=== PATIENT | female | born 2005 | race Two or more races ===

== ENCOUNTER 2023-01-22 21:30 | Emergency (ER) | payer SELFPAY ==
[2023-01-22] VITALS (9 sets, daily range): BP systolic 100–124; BP diastolic 64–82; PULSE 68–80; RESP 16–18; TEMP 36.7–36.8; O2SAT 99–100; BMI 21.6
--- NOTE | 2023-01-22 21:43 | ED.GENADULT ---
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 She states the pain is gone for past 4 days. The cramping sensation. She states it starts in the suprapubic region and goes to her bilateral hips. She does note she has been having vaginal bleeding and had a large clot a few days ago. She says the bleeding has slowed down. She states her period was supposed to start for another week. Has had some nausea but denies fevers, chills, chest pain, shortness of breath, diarrhea, constipation, headache, vision changes, lightheadedness, dizziness, vaginal discharge. She does admit to being sexually active. Denies any dysuria. States she has never had symptoms like this before. Related Data Previous Rx's Medication Instructions Recorded ondansetron 4 mg disintegrating 4 mg PO Q6H #20 tabs 01/22/23 tablet Allergies Allergy/AdvReac Type Severity Reaction Status Date / Time No Known Drug Allergies Allergy Verified 01/22/23 21:42 Review of Systems Status of ROS: Reports: 10 or more systems reviewed and unremarkable except as noted in History and below [facility] Medical History (Updated 01/22/23 @ 22:41 by Rachid Vale DO) No significant past medical history Surgical History (Updated 01/22/23 @ 21:55 by Vicente Gutierres RN) No significant past surgical history Social History Smoking Status: Never smoker Second hand tobacco smoke exposure: No How often do you have a drink containing alcohol: never How often do you have six or more drinks on one occasion: Never AUDIT-C Alcohol total score: 0 Non-prescribed substance use: denies use Exam Narrative: Exam Narrative: Const: Well-nourished, Well-developed, in mild distress Eyes: PERRL, no conjunctival injection, and symmetrical lids ENMT: Atraumatic external nose and ears. Moist mucous membranes. Neck: Symmetric, trachea midline, No thyromegaly. CVS: RRR, No murmurs or gallops. Peripheral pulses 2+ and equal in all extremities RESP: Unlabored respiratory effort. Clear to auscultation bilaterally. GI: Suprapubic tenderness, Nondistended, No rebound or guarding. MSK:Extremities w/o deformity, Normal Active ROM Skin: Warm, Dry. No rashes or lesions. Neuro: Normal Muscle tone, No focal neurological deficits. Psych: Awake, Alert, & Oriented x3. Appropriate mood and affect. Const: Vital Signs, click to edit/add: Vital Signs - 24 hr 01/22/23 21:39 01/22/23 21:53 01/22/23 21:57 Temperature 98.0 F 98.0 F 98.0 F Pulse Rate 68 Pulse Rate [Right Pulse Oximeter] 74 Respiratory Rate 18 16 Blood Pressure 114/76 Blood Pressure [Le ft Upper Arm] 124/82 Pulse Oximetry 99 100 Oxygen Delivery Me thod Room Air 01/22/23 22:02 01/22/23 22:31 Temperature 98.2 F 98.2 F Pulse Rate 69 73 Pulse Rate [Right Pulse Oximeter] Respiratory Rate 16 16 Blood Pressure 111/65 100/64 Blood Pressure [Le ft Upper Arm] Pulse Oximetry 100 100 Oxygen Delivery Me thod Course Vital Signs Vital signs: Initial Vital Signs Temperature 98.0 F 01/22/23 21:39 Temperature Source Temporal Artery Scan 01/22/23 21:39 Pulse Rate 74 01/22/23 21:39 Pulse Rhythm Regular 01/22/23 21:39 Respiratory Rate 18 01/22/23 21:39 Blood Pressure 124/82 01/22/23 21:39 Blood Pressure Mean 96 01/22/23 21:39 Blood Pressure Position Sitting 01/22/23 21:39 Pulse Oximetry 99 01/22/23 21:39 Oxygen Delivery Method Room Air 01/22/23 21:39 Vital Signs Temperature 98.0 F 01/22/23 21:39 Pulse Rate 74 01/22/23 21:39 Respiratory Rate 18 01/22/23 21:39 Blood Pressure 124/82 01/22/23 21:39 Pulse Oximetry 99 01/22/23 21:39 Oxygen Delivery Method Room Air 01/22/23 21:39 Temperature 98.2 F 01/22/23 22:31 Pulse Rate 73 01/22/23 22:31 Respiratory Rate 16 01/22/23 22:31 Blood Pressure 100/64 01/22/23 22:31 Pulse Oximetry 100 01/22/23 22:31 Oxygen Delivery Method Room Air 01/22/23 21:39 Medical Decision Making MDM Narrative Medical decision making narrative: Patient is an 16-year-old female presents was performed for lower abdominal cramping and pelvic pain. Pain is gone for 4 days. She has also been having some vaginal bleeding. She states that she would be early for her menstrual period. Has had some nausea but no vomiting. No vaginal discharge. Denies dysuria or increased frequency. No fevers or chills. Right now differential includes , ectopic , menstruation, UTI, viral gastritis. Unlikely to be ovarian torsion concerning location is more suprapubic versus inguinal and has been gone for 4 days and patient is not into once distress at this time. CMP shows no concerning abnormalities. test was negative. Urinalysis shows no concerning abnormalities. Patient's CBC shows no clear signs of anemia or infection. At this point is unclear what is causing her symptoms but this not appear to be anything emergent. Could be a viral gastroenteritis or just her menstrual period coming early. I informed the patient to return emergency department if the pelvic pain gets worse or if the pain starts localizing to the right lower quadrant. She states she understands. She will be discharged home. Lab Data Labs: Lab Results 01/22/23 Range/Units 21:48 WBC 8.34 (4.50-11.00) K/uL RBC 4.60 (4.00-5.20) m/uL Hgb 13.8 (12.0-16.0) gm/dL Hct 41.2 (33.0-51.0) % MCV 90 (80-100) fL MCH 30 (26-34) pg MCHC 34 (32-36) gm/dL RDW Coeff of Evonne 12.5 (11.5-15.5) % Plt Count 316 (140-440) K/uL Neut % (Auto) 44.7 (42.0-72.0) % Lymph % (Auto) 43.5 (20-44) % [place] % (Auto) 6.8 (0.0-11.0) % Eos % (Auto) 3.5 (0.0-7.0) % Baso % (Auto) 0.8 (0.0-3.0) % Neut # (Auto) 3.72 (1.7-7.0) K/uL Lymph # (Auto) 3.63 H (0.90-2.90) K/uL [place] # (Auto) 0.60 (0.00-0.90) K/UL Eos # (Auto) 0.29 (0.00-0.50) K/uL Baso # (Auto) 0.07 (0.00-0.30) K/uL Abs Immat Gran (auto) 0.06 (0.00-0.30) K/uL Imm/Tot Granulo (auto) 0.7 % Sodium 140 (135-149) mmol/L Potassium 3.3 L (3.6-5.1) mmol/L Chloride 102 (96-114) mmol/L Carbon Dioxide 26 (20-32) mmol/L BUN 15 (5-24) mg/dL Creatinine 0.5 L (0.6-1.2) mg/dL Estimated Creat Clear 162.85 Estimated GFR 138 ml/min Glucose 90 (60-115) mg/dL Calcium 9.9 (8.7-10.8) mg/dL Total Bilirubin 0.4 (0.1-1.5) mg/dL AST 29 (12-35) U/L ALT 17 (4-35) U/L Alkaline Phosphatase 119 (40-150) U/L Total Protein 8.9 H (6.0-8.3) g/dL Albumin 5.4 H (3.3-5.0) g/dL Urine Color Yellow (Yellow) Urine Appearance Clear (Clear) Urine pH 5.5 (5.0-8.5) Ur Specific [place] >= 1.030 (1.000-1.030) Urine Protein Negative (Negative) Urine Glucose (UA) Negative (Negative) Urine Ketones Negative (Negative) Urine Blood 2+ A (Negative) Urine Nitrite Negative (Negative) Urine Bilirubin Negative (Negative) Urine Urobilinogen 0.2 (0.2-1.0) Ur Leukocyte Esterase Negative (Negative) Urine RBC 0-2 (0-2) Urine WBC 0-2 (0-5) Ur Squamous Epith Cells Few (None-Few) Urine Bacteria None (None) Urine HCG, Qual Negative (Negative) Discharge Plan Discharge Clinical Impression: Pelvic pain Patient Disposition: Home, Self-Care Condition: Stable Instructions: Pelvic Pain (ED) Additional Instructions: Follow-up with the primary care provider. Take Tylenol or ibuprofen for pain. We also gave you Zofran for nausea. If the pelvic pain gets worse or pain starts radiating to the right lower portion of your abdomen please return to the emergency department or return for any other concerning symptoms Seguimiento con el proveedor de atenci?n primaria. Sidell Tylenol o ibuprofeno para el dolor. Tambi?n te dimos Zofran para las n?useas. Si el dolor p?lvico empeora o el dolor comienza a irradiarse a la parte inferior derecha de keller abdomen, regrese al departamento de emergencias o regrese para cualquier otro s?ntoma preocupante. Prescriptions: New ondansetron 4 mg tablet,disintegrating 4 mg PO Q6H Qty: 20 0RF Stand Alone Forms: [facility]
[2023-01-22] MEDS: ONDANSETRON 2 MG/ML inj 4 MG IVP (21:50)
[2023-01-22] MEDS: KETOROLAC 15 MG/ML inj IVP (21:57)
[2023-01-22 21:59] LABS: Appearance Urine Clear (Clear); Bilirubin Urine Negative (Negative); Blood Urine 2+ (Negative); Color Urine Yellow (Yellow); Glucose Urine Negative (Negative); Ketones Urine Negative (Negative); Leukocyte Esterase Urine Negative (Negative); Nitrite Urine Negative (Negative); Protein Urine Negative (Negative); Specific Gravity Urine >= 1.030 (1.000-1.030); Urobilinogen Urine 0.2 (0.2-1.0); pH Urine 5.5 (5.0-8.5)
[2023-01-22 22:05] LABS: RBC Urine 0-2 (0-2); Squamous Epithelial Cell Urine Few (None-Few); WBC Urine 0-2 (0-5)
[2023-01-22 22:10] LABS: Albumin* 5.4 g/dL (3.3-5.0); Chloride* 102 mmol/L (96-114); Potassium* 3.3 mmol/L (3.6-5.1); Sodium* 140 mmol/L (135-149)
[2023-01-22 22:13] LABS: Alkaline Phosphatase* 119 U/L (40-150); Aspartate Amino Transferase* 29 U/L (12-35); Bilirubin Total* 0.4 mg/dL (0.1-1.5); Blood Urea Nitrogen* 15 mg/dL (5-24); Carbon Dioxide* 26 mmol/L (20-32); Creatinine* 0.5 mg/dL (0.6-1.2); Est. Creatinine Clearance* 162.85; Estimated Glomerular Filt Rate 138 ml/min; Glucose* 90 mg/dL (60-115); Total Protein* 8.9 g/dL (6.0-8.3)
[2023-01-22 22:14] LABS: Alanine Aminotransferase* 17 U/L (4-35); Calcium* 9.9 mg/dL (8.7-10.8)
[2023-01-22 22:16] LABS: Ur HCG Qualitative* Negative (Negative)
[2023-01-22 22:29] LABS: Basophils Absolute Auto 0.07 K/uL (0.00-0.30); Basophils Percent Auto 0.8 % (0.0-3.0); Eosinophils Absolute Auto 0.29 K/uL (0.00-0.50); Eosinophils Percent Auto 3.5 % (0.0-7.0); Hematocrit 41.2 % (33.0-51.0); Hemoglobin* 13.8 gm/dL (12.0-16.0); Immature Granulocytes Abs Auto 0.06 K/uL (0.00-0.30); Immature Granulocytes Pct Auto 0.7 %; Lymphocytes Absolute Auto 3.63 K/uL (0.90-2.90); Lymphocytes Percent Auto 43.5 % (20-44); Mean Corpuscular HGB Conc 34 gm/dL (32-36); Mean Corpuscular Hemoglobin 30 pg (26-34); Mean Corpuscular Volume 90 fL (80-100); Monocytes Percent Auto 6.8 % (0.0-11.0); Neutrophils Absolute Auto 3.72 K/uL (1.7-7.0); Neutrophils Percent Auto 44.7 % (42.0-72.0); Platelet Count* 316 K/uL (140-440); RDW Coefficient of Variation % 12.5 % (11.5-15.5); White Blood Count* 8.34 K/uL (4.50-11.00)
[2023-01-22 22:32] LABS: Slide Review Reflex No
== END 2023-01-22 22:57 | disposition home or self-care (01) ==
LOC: ED 22:56
PROVIDERS: Emergency Provider Student in an Organized Health Care Education/Training Program
DX: R10.2 Pelvic and perineal pain (principal)
CPT/HCPCS: 36415; 80053; 81001; 81025; 85025; 94761; 96374; 96375; 99283; 99284; J1885; J2405

== ENCOUNTER 2023-05-30 22:58 | Emergency (ER) | payer SELFPAY ==
[2023-05-30 23:14] VITALS: BP 97/59; PULSE 93; RESP 16; TEMP 36.9; O2SAT 99; BMI 25.6
[2023-05-30 23:30] LABS: Appearance Urine Clear (Clear); Bilirubin Urine Negative (Negative); Blood Urine Negative (Negative); Color Urine Yellow (Yellow); Glucose Urine Negative (Negative); Ketones Urine Negative (Negative); Leukocyte Esterase Urine Negative (Negative); Nitrite Urine Negative (Negative); Protein Urine Negative (Negative); Specific Gravity Urine >= 1.030 (1.000-1.030); Urobilinogen Urine 0.2 (0.2-1.0)
--- NOTE | 2023-05-31 00:03 | ED.GENADULT ---
HPI - General Adult General Chief complaint: Abdominal Pain Stated complaint: 7wks , wants ultrasound Time Seen by Provider: 05/30/23 23:24 History of Present Illness HPI narrative: Patient here with generalized cramping (both sides, suprapubic) in abdomen starting yesterday. 7 weeks present. No bleeding. Started a few days ago. Chills. otherwise healthy. second . 18-year-old young woman presenting to the emergency department with concern of has been having days of cramping. More when she lays down. Bilateral abdomen. . Estimates herself to be 7 weeks currently. Has a 2-year-old at home. Accompanied here by significant other. No bleeding. No dysuria. She has felt some chills but has not measured a fever. Admits that is probably constipated. Did actually have an ultrasound a week ago. Verified intrauterine . Related Data Home Medications Medication Instructions Recorded Confirmed docosahexaenoic acid PO 05/30/23 Allergies Allergy/AdvReac Type Severity Reaction Status Date / Time No Known Drug Allergies Allergy Verified 01/22/23 21:42 Review of Systems Status of ROS: Reports: 6 or more systems reviewed and unremarkable except as noted in History and below [facility] Medical History (Updated 06/15/23 @ 00:00 by Claudio Stockton) No significant past medical history Surgical History (Updated 01/22/23 @ 21:55 by Vicente Gutierres RN) No significant past surgical history Social History Smoking Status: Never smoker Second hand tobacco smoke exposure: No How often do you have a drink containing alcohol: never How often do you have six or more drinks on one occasion: Never AUDIT-C Alcohol total score: 0 Non-prescribed substance use: denies use Exam Narrative: Exam Narrative: Pleasant. NAD. Appears mildly anxious. Breathing easily. Lungs are clear. Heart in little elevated rate regular rhythm I do not hear murmur at this point. Abdomen with normoactive bowel sounds is soft. Sore to palpation the right mid abdomen. No peritoneal signs. No flank tenderness. Extremities are without edema. Well-perfused. Const: Vital Signs, click to edit/add: Vital Signs - 24 hr 05/30/23 23:14 Temperature 98.4 F Pulse Rate [Pulse Oximeter] 93 Respiratory Rate 16 Blood Pressure [Ri ght Upper Arm] 97/59 L Pulse Oximetry 99 Oxygen Delivery Me thod Room Air Documenting provider has reviewed patient's vital signs: yes Course Vital Signs Vital signs: Initial Vital Signs Temperature 98.4 F 05/30/23 23:14 Temperature Source Temporal Artery Scan 05/30/23 23:14 Pulse Rate 93 05/30/23 23:14 Pulse Rhythm Regular 05/30/23 23:14 Respiratory Rate 16 05/30/23 23:14 Blood Pressure 97/59 L 05/30/23 23:14 Blood Pressure Mean 71 05/30/23 23:14 Blood Pressure Position Sitting 05/30/23 23:14 Pulse Oximetry 99 05/30/23 23:14 Oxygen Delivery Method Room Air 05/30/23 23:14 Vital Signs Temperature 98.4 F 05/30/23 23:14 Pulse Rate 93 05/30/23 23:14 Respiratory Rate 16 05/30/23 23:14 Blood Pressure 97/59 L 05/30/23 23:14 Pulse Oximetry 99 05/30/23 23:14 Oxygen Delivery Method Room Air 05/30/23 23:14 Temperature 98.4 F 05/30/23 23:14 Pulse Rate 93 05/30/23 23:14 Respiratory Rate 16 05/30/23 23:14 Blood Pressure 97/59 L 05/30/23 23:14 Pulse Oximetry 99 05/30/23 23:14 Oxygen Delivery Method Room Air 05/30/23 23:14 Medical Decision Making MDM Narrative Medical decision making narrative: Will need to verify whether not there is urinary tract infection. Does not have any unusual vaginal discharge. This symptoms not consistent with degree of what I might expect with a kidney stone. Miscarriage is possibility but minimal symptoms; cramping not inconsistent I think with or I think probably more a colicky discomfort related to some degree of constipation. Ectopic seems unlikely given that has had verification of intrauterine . Did collect urinalysis which looked essentially normal. Returned with bedside/point of care ultrasound. Verifying active intrauterine . Sona relieved. See patient discharge plan Lab Data Lab results reviewed: Yes I reviewed the patient's lab results Labs: Lab Results 05/30/23 Range/Units 23:15 Urine Color Yellow (Yellow) Urine Appearance Clear (Clear) Urine pH 6.0 (5.0-8.5) Ur Specific [place] >= 1.030 (1.000-1.030) Urine Protein Negative (Negative) Urine Glucose (UA) Negative (Negative) Urine Ketones Negative (Negative) Urine Blood Negative (Negative) Urine Nitrite Negative (Negative) Urine Bilirubin Negative (Negative) Urine Urobilinogen 0.2 (0.2-1.0) Ur Leukocyte Esterase Negative (Negative) Urine RBC 0-2 (0-2) Urine WBC 0-2 (0-5) Ur Squamous Epith Cells Few (None-Few) Urine Bacteria Few A (None) Discharge Plan Discharge Clinical Impression: Abdominal cramping, Patient Disposition: Home w/ Parent or Adult Condition: Stable Additional Instructions: Be sure to stay well-hydrated. I would think about adding MiraLax equivalent to your liquid intake. 2-3 doses a day and adjust to stool consistency. If seems particularly hard might benefit from placement of an enema. Return otherwise for marked increase in persistent pain, associated fever, bleeding more than a little spotting. Sounds like you have an OB follow-up in about 2 weeks. Aseg?rese de mantenerse edy hidratado. Pensar?a en agregar el equivalente de MiraLax a keller ingesta de l?quidos. 2-3 dosis al d?a y ajustar a la consistencia de las heces. Si parece particularmente dif?cil, podr?a beneficiarse de la colocaci?n de un enema. Regrese de lo contrario por un marcado aumento del dolor persistente, fiebre asociada, sangrado m?s que un poco de manchado. Parece que tiene un seguimiento obst?trico en aproximadamente 2 semanas. Prescriptions: No Action docosahexaenoic acid [ DHA] PO Follow Up/Referrals: Provider,Not a Local [Primary Care Provider] - Stand Alone Forms: [facility] Info Instructions
[2023-05-31 00:20] LABS: Bacteria Urine Few; RBC Urine 0-2 (0-2); Squamous Epithelial Cell Urine Few (None-Few); WBC Urine 0-2 (0-5)
== END 2023-05-31 01:16 | disposition home or self-care (01) ==
PROVIDERS: Emergency Provider Family Medicine
DX: R10.9 Unspecified abdominal pain (principal); Z3A.01 Less than 8 weeks gestation of pregnancy
CPT/HCPCS: 81001; 87086; 95992; 99283; 99284